=== PATIENT | male | born 1985 | race Two or more races ===

== ENCOUNTER 2023-12-06 04:51 | Emergency (ER) | payer OTHER ==
[2023-12-06] MEDS: Cyclobenzaprine 10 MG Tab PO ONE (05:15)
[2023-12-06] MEDS: Ibuprofen 600 MG Tab PO ONE (05:15)
== END 2023-12-06 05:19 | disposition home or self-care (01) ==
LOC: MW.ED 04:51
DX: S39.92XA Unspecified injury of lower back, initial encounter (principal); W00.0XXA Fall on same level due to ice and snow, initial encounter; Y93.29 Activity, other involving ice and snow
CPT/HCPCS: 99283; A9270

== ENCOUNTER 2024-05-30 14:24 | Emergency (ER) | payer SELFPAY ==
[2024-05-30] MEDS: Sodium Chloride 0.9% 1,000 ML IV ONE (15:04)
[2024-05-30] MEDS: Pantoprazole 40 MG in Sodium Chloride 0.9% 10 ML IVPUSH ONE (15:04)
[2024-05-30] MEDS: Ondansetron 4 MG/2 ML SDV IVPUSH ONE (15:04)
[2024-05-30 15:08] LABS: BASOPHILS ABSOLUTE AUTO 0.03 K/uL (0.00-0.20); BASOPHILS PERCENT AUTO 0.5 % (0.0-1.0); EOSINOPHILS ABSOLUTE AUTO 0.03 K/uL (0.00-0.45); EOSINOPHILS PERCENT AUTO 0.5 % (0.0-6.0); HEMATOCRIT 47.7 % (42.0-52.0); HEMOGLOBIN 16.5 g/dL (14.0-18.0); IMMATURE GRAN ABSOLUTE AUTO 0.03 K/uL (0.00-0.05); IMMATURE GRAN PERCENT AUTO 0.5 % (0.0-0.4); LYMPHOCYTES ABSOLUTE AUTO 1.81 K/uL (1.00-4.80); LYMPHOCYTES PERCENT AUTO 28.5 % (24.0-44.0); MEAN CORPUSCULAR HEMOGLOBIN 30.1 pg (28.0-32.0); MEAN CORPUSCULAR HGB CONC 34.6 g/dL (32.0-36.0); MONOCYTES ABSOLUTE AUTO 0.42 K/uL (0.00-0.80); MONOCYTES PERCENT AUTO 6.6 % (0.0-8.0); NEUTROPHILS ABSOLUTE AUTO 4.03 K/uL (1.80-7.70); NEUTROPHILS PERCENT AUTO 63.4 % (41.0-71.0); PLATELET COUNT,PLT 309 K/uL (150-400); RED BLOOD CELL COUNT 5.48 M/uL (4.52-5.90); WHITE BLOOD CELL COUNT,WBC 6.35 K/uL (3.9-11.3)
[2024-05-30 15:35] LABS: A/G RATIO 1.2 (0.9-1.6); ALBUMIN 4.2 g/dL (3.4-5.0); BILIRUBIN TOTAL 1.1 mg/dL (0.2-1.0); CALCIUM 9.1 mg/dL (8.5-10.1); CREATININE 1.1 mg/dL (0.8-1.3); EST CRCL DRUG DOSING (CG) 99.69 mL/min; MAGNESIUM 2.2 mg/dL (1.8-2.4); POTASSIUM,K 4.3 mmol/L (3.5-5.1); PROTEIN TOTAL,TP 7.8 g/dL (6.4-8.2)
[2024-05-30 15:46] LABS: APPEARANCE,URINE CLEAR; BILIRUBIN,URINE NEGATIVE (NEGATIVE); COLOR,URINE YELLOW; GLUCOSE,URINE NEGATIVE (NEGATIVE); KETONES,URINE NEGATIVE (NEGATIVE); LEUKOCYTE ESTERASE,URINE NEGATIVE (NEGATIVE); NITRITE,URINE NEGATIVE (NEGATIVE); OCCULT BLOOD,URINE NEGATIVE (NEGATIVE); PH,URINE 7.5 (5.0-8.0); PROTEIN,URINE NEGATIVE (NEGATIVE); UROBILINOGEN,URINE 0.2 EU/dL (<2.0)
[2024-05-30] MEDS: Iopamidol 755 MG/ML 500 ML Multipack Bottle IVPUSH STA (16:11)
== END 2024-05-30 17:26 | disposition home or self-care (01) ==
LOC: MW.ED 14:24
DX: K92.0 Hematemesis (principal); K21.9 Gastro-esophageal reflux disease without esophagitis; Z79.899 Other long term (current) drug therapy; Z75.8 Other problems related to medical facilities and other health care
CPT/HCPCS: 36415; 74177; 80053; 81003; 83690; 83735; 85025; 96361; 96374; 96375; 99285; J2405; J2470; J3490; J7030; Q9967; 99284

== ENCOUNTER 2024-08-03 11:27 | Emergency (ER) | payer SELFPAY ==
[2024-08-03] MEDS: Sodium Chloride 0.9% 1,000 ML IV ONE ×2 (12:06→14:16)
[2024-08-03] MEDS: ceFAZolin 1 GM in Sodium Chloride 0.9% 50 ML IV ONE (12:06)
[2024-08-03] MEDS: Ondansetron 4 MG/2 ML SDV IVPUSH ONE (12:06)
[2024-08-03] MEDS: Acetaminophen 500 MG Tab PO ONE (12:06)
[2024-08-03] MEDS: Morphine 2 MG/ML SYRINGE IVPUSH ONE (12:09)
[2024-08-03] MEDS: Diphtheria,Pertussis(Acell),Tetanus Vaccine 0.5 ML Syringe IM ONE (12:09)
[2024-08-03] MEDS: Lidocaine 1% 10 ML MDV INFILT ONE (12:10)
[2024-08-03 12:22] LABS: BASOPHILS ABSOLUTE AUTO 0.03 K/uL (0.00-0.20); BASOPHILS PERCENT AUTO 0.4 % (0.0-1.0); EOSINOPHILS ABSOLUTE AUTO 0.07 K/uL (0.00-0.45); HEMOGLOBIN 14.7 g/dL (14.0-18.0); IMMATURE GRAN ABSOLUTE AUTO 0.02 K/uL (0.00-0.05); IMMATURE GRAN PERCENT AUTO 0.3 % (0.0-0.4); LYMPHOCYTES ABSOLUTE AUTO 2.99 K/uL (1.00-4.80); LYMPHOCYTES PERCENT AUTO 41.1 % (24.0-44.0); MEAN CORPUSCULAR HEMOGLOBIN 29.9 pg (28.0-32.0); MEAN CORPUSCULAR HGB CONC 35.9 g/dL (32.0-36.0); MEAN CORPUSCULAR VOLUME 83.5 fL (83.0-99.0); MONOCYTES ABSOLUTE AUTO 0.45 K/uL (0.00-0.80); MONOCYTES PERCENT AUTO 6.2 % (0.0-8.0); NEUTROPHILS ABSOLUTE AUTO 3.71 K/uL (1.80-7.70); PLATELET COUNT,PLT 314 K/uL (150-400); RED BLOOD CELL COUNT 4.91 M/uL (4.52-5.90); WHITE BLOOD CELL COUNT,WBC 7.27 K/uL (3.9-11.3)
[2024-08-03] MEDS: Naloxone 0.4 MG/ML SDV ONE (12:34)
[2024-08-03] MEDS: Sodium Chloride 0.9% 10 ML Syringe FLUSH PRN (12:49)
[2024-08-03] MEDS: Naloxone 0.4 MG/ML SDV IVPUSH ONE (12:49)
[2024-08-03] MEDS: Bacitracin Oint 1 GM U/D Packet TOP ONE (12:54)
[2024-08-03 13:13] LABS: A/G RATIO 1.3 (0.9-1.6); ALANINE AMINOTRANSFERASE,ALT 36 IU/L (14-63); ALKALINE PHOSPHATASE 57 U/L (46-116); ASPARTATE AMNIOTRANSFERASE,AST 19 IU/L (15-37); BILIRUBIN TOTAL 0.9 mg/dL (0.2-1.0); BLOOD UREA NITROGEN,BUN 11 mg/dL (7.0-18.0); CALCIUM 8.7 mg/dL (8.5-10.1); CARBON DIOXIDE,CO2 28.6 mmol/L (21.0-32.0); CHLORIDE,CL 104 mmol/L (98-107); CREATININE 1.1 mg/dL (0.8-1.3); EST CRCL DRUG DOSING (CG) 91.95 mL/min; GLUCOSE RANDOM 120 mg/dL (74-106); MAGNESIUM 1.7 mg/dL (1.8-2.4); POTASSIUM,K 3.9 mmol/L (3.5-5.1); PRO B-TYPE NATRIUR PEPT,BNPPRO 10 pg/mL (0-125); PROTEIN TOTAL,TP 7.1 g/dL (6.4-8.2); SODIUM,NA 140 mmol/L (136-148)
[2024-08-03 13:17] LABS: ESTIMATED GFR 89 mL/min (>60)
[2024-08-03] MEDS: Ketorolac 30 MG/ML SDV IVPUSH ONE (13:17)
[2024-08-03] MEDS: Bacitracin Oint 28.35 GM Tube TOP STA (14:18)
[2024-08-03] MEDS: Magnesium Sulfate/Water Premix 2 GM in Premix Bag 1 BAG IV ONE (14:33)
== END 2024-08-03 15:53 | disposition home or self-care (01) ==
LOC: MW.ED 11:27
DX: S62.636B Displaced fracture of distal phalanx of right little finger, initial encounter for open fracture (principal); S69.91XA Unspecified injury of right wrist, hand and finger(s), initial encounter; R55 Syncope and collapse; Z23 Encounter for immunization; Z79.899 Other long term (current) drug therapy; W01.0XXA Fall on same level from slipping, tripping and stumbling without subsequent striking against object, initial encounter
CPT/HCPCS: 12002; 36415; 71045; 73130; 80053; 83735; 83880; 84484; 85025; 90471; 90715; 93005; 96361; 96365; 96367; 96375; 99284; A9270; J0690; J2270; J2310; J2405; J3475; J3490; J7030; 93010; J1885